=== PATIENT | female | born 2000 | race Two or more races ===

== ENCOUNTER 2024-06-22 11:50 | Emergency (ER) | payer MEDICAID, OTHER ==
[~2024-06-22] VITALS: Ht 160 cm; Wt 72.8 kg
[2024-06-22 13:10] VITALS: BP 147/81; PULSE 82; RESP 18; TEMP 99; O2SAT 99
[2024-06-22] MEDS ORDERED: IBUP-1455 PO (13:47)
[2024-06-22] MEDS ORDERED: CYCL-837 PO (13:47)
[2024-06-22] MEDS ORDERED: LIDO5DIS21 TOP (13:47)
[2024-06-22] MEDS: HYDROcodone-ACET 5/325MG TAB PO ONE (14:11)
[2024-06-22] MEDS: KETOROLAC TROMETH 30 MG/ML 1ML VIAL IM ONE (14:11)
== END 2024-06-22 14:46 | disposition home or self-care (01) ==
LOC: ER 12:01
DX: M54.2 Cervicalgia (principal); M54.50 Low back pain, unspecified; M25.562 Pain in left knee; V43.52XA Car driver injured in collision with other type car in traffic accident, initial encounter; Y93.89 Activity, other specified; Y92.488 Other paved roadways as the place of occurrence of the external cause; Y99.8 Other external cause status
CPT/HCPCS: 96372; 99283; J1885